=== PATIENT | female | born 1985 | race Caucasian/White ===

== ENCOUNTER 2016-08-16 14:18 | Emergency (ER) | payer MEDICAID ==
[2016-08-16 15:20] VITALS: BP 105/65; PULSE 103; RESP 14; TEMP 98.6; O2SAT 97
--- NOTE | 2016-08-16 16:06 | UCPHY ---
H & P Time Seen by Provider: 08/16/16 16:04 Patient Type: Established HPI/ROS: HPI: 30-year-old female presents to the urgent care with chief concern right ear pain. Reports onset of right ear pain yesterday. Pain is 5/10 and constant. Has had cold symptoms for the past week. Denies fever, dizziness, discharge from her ear, dysphagia, shortness of breath, chest pain, nausea or vomiting. Has a history of tubes in her ears when she was a child. ROS:10 point review of systems is negative other than as stated in HPI Smoking Status: Never smoked Physical Exam: Vital signs stable, reviewed by me General: Awake, alert, calm, cooperative. No acute distress. Head: Atraumatic. EENT: Conjuctiva mildly injected. TMs intact, erythema, bulging, obscured landmarks of the right tympanic membrane. Nasal mucosa is erythematous with moderate clear discharge. Pharynx mildly erythematous. Uvula midline. No frontal or maxillary tenderness to percussion. Respiratory: Breathing unlabored. Lungs clear to auscultation bilaterally. No accessory muscle use. CV: Heart rate regular. S1-S2 present. No murmur. Skin: Warm, dry, intact. No rashes present. Capillary refill brisk. Musculoskeletal: Full ROM all extremities. Neuro: Alert oriented x3. Strength equal in all 4 extremities. Constitutional: Initial Vital Signs Temperature (C) 37.0 C 08/16/16 15:15 Heart Rate 103 H 08/16/16 15:15 Respiratory Rate 14 08/16/16 15:15 Blood Pressure 105/65 08/16/16 15:15 O2 Sat (%) 97 08/16/16 15:15 O2 Delivery Mode Room Air Allergies/Adverse Reactions: oxycodone Allergy (Intermediate, Verified 08/16/16 15:14) Hives Home Medications: Medication Instructions Recorded MIRENA 04/28/16 Amoxicillin 500 mg PO BID 10 Days 08/16/16 Medical Decision Making Differential Diagnosis: Differential includes but is not limited to acute otitis media, serous otitis media, otitis externa Departure - Departure Clinical Impression: Acute otitis media Qualifiers: Otitis media type: suppurative Laterality: right Condition: Good Instructions: Otitis Media (ED) Additional Instructions: Plan: Antibiotic as prescribed twice daily for 10 days, take with food You may use 600 mg of ibuprofen every 6 hours for fever, inflammation, or pain. Always take ibuprofen with food and stay well hydrated while taking. Do not exceed the maximum allowable dose in a 24 hour period which is 2400 mg. If symptoms worsen, follow up with ENT as discussed--When you call to schedule appointment, please let the office know you are an "ER follow up" appointment" Referrals: NONE *PRIMARY CARE P,. [Primary Care Provider] - As per Instructions Shahid El PA [Physician Supervisory Historian] - As per Instructions Prescriptions: Amoxicillin 500 mg PO BID 10 Days - PQRS PQRS Measurement: Not applicable
== END 2016-08-16 16:28 | disposition home or self-care (01) ==
LOC: CED 14:18
DX: H66.001 Acute suppurative otitis media without spontaneous rupture of ear drum, right ear (principal)
CPT/HCPCS: 99214-PO; G0463-PO

== ENCOUNTER 2016-11-24 16:19 | Emergency (ER) | payer MEDICAID ==
[2016-11-24 16:33] VITALS: BP 122/76; PULSE 82; RESP 18; TEMP 98.2; O2SAT 96
--- NOTE | 2016-11-24 16:42 | UCPHY ---
H & P Time Seen by Provider: 11/24/16 16:41 Patient Type: Established HPI/ROS: CHIEF COMPLAINT: Abdominal pain HISTORY OF PRESENT ILLNESS: The patient is a 31-year-old female presenting with abdominal pain. She developed this pain 2 days ago. The pain is cyclical in nature, coming in waves where it is moderate, lasting a few minutes, then subsides to a mild pain. It ranges in duration. She state the pain is a cramping sensation that felt similar to menstrual cramps originally and then became more severe. The pain is diffusely throughout her abdomen, as she points to the lower abdomen. No associated nausea, vomiting, or diarrhea. She had a normal bowel movement this morning. Her last dose of Ibuprofen was at 11am, she took 1200mg at that time. The patient has a history of ectopic in 2011 and subsequently had left fallopian tube removed, after failing a course of methotrexate. LMP 315, though she has irregular periods in the 1st place REVIEW OF SYSTEMS: Constitutional: No fever, no chills. Eyes: No discharge. ENT: No sore throat. Cardiovascular: No chest pain, no palpitations. Respiratory: No cough, shortness of breath, or wheezing. Gastrointestinal: See above. Genitourinary: No hematuria or frequency. Smoking Status: Never smoked Physical Exam: General Appearance: Alert, no distress. Afebrile. Normal phonation. No respiratory distress. Eyes: Pupils equal and round no pallor or injection. No icterus ENT, Mouth: Mucous membranes moist. Pharynx without erythema or exudate. TM Clear. Neck: No adenopathy. Supple. No JVD. Trachea in midline. Respiratory: There are no retractions, lungs are clear to auscultation. Cardiovascular: Regular rate and rhythm. Abdomen: Mild tenderness both sides without rebound or guarding. Neurological: Ox3. No motor weakness. Sensation intact. Gait nl. Skin: Warm and dry, no rashes. Musculoskeletal: No joint swelling. Extremities: No edema. Homans sign negative. No cords. Psychiatric: Normal affect. [Patient is oriented X 3, there is no agitation] Constitutional: Initial Vital Signs Temperature (C) 36.8 C 11/24/16 16:20 Heart Rate 82 11/24/16 16:20 Respiratory Rate 18 11/24/16 16:20 Blood Pressure 122/76 H 11/24/16 16:20 O2 Sat (%) 96 11/24/16 16:20 O2 Delivery Mode Room Air Allergies/Adverse Reactions: oxycodone Allergy (Intermediate, Verified 11/24/16 16:33) Hives Home Medications: Medication Instructions Recorded Dicyclomine [Bentyl 10 MG (*)] 1 - 2 tab PO Q8 PRN #15 cap 11/24/16 11/24/16 Medical Decision Making ED Course/Re-evaluation: The patient is a 31-year-old female presenting with intermittent abdominal pain for the past 2 days. The patient has history of appendectomy and ectopic . She states her pain is a cramping sensation that has become more severe throughout the day. The patient is not on control. Plan to check test. Plan to treat her pain with Bentyl due to cyclic nature of pain. 6:35 p.m.: The patient has a negative test. I reevaluated the patient , she continues to have some cramping. Plan to treat with Bentyl. Differential Diagnosis: Differential diagnosis includes, but is not limited to: Gastroenteritis, dehydration, ectopic , gastritis, mesenteric adenitis , food poisoning, bacterial dysentery - Data Points Laboratory Results: 11/24/16 11/24/16 18:00 18:00 Urine Color YELLOW Urine Appearance HAZY Urine pH 6.5 (5.0-7.5) Ur Specific [place] 1.015 (1.002-1.030) Urine Protein NEGATIVE (NEGATIVE) Urine Ketones NEGATIVE (NEGATIVE) Urine Blood 3+ H (NEGATIVE) Urine Nitrate NEGATIVE (NEGATIVE) Urine Bilirubin NEGATIVE (NEGATIVE) Urine Urobilinogen 0.2 EU EU (0.2-1.0) Ur Leukocyte Esterase TRACE H (NEGATIVE) Urine RBC 15-25 /hpf H /hpf (0-3) Urine WBC 5-10 /hpf H /hpf (0-3) Ur Epithelial Cells 3+ /lpf H /lpf (NONE-1+) Urine Bacteria 2+ /hpf H /hpf (NONE SEEN) Urine Mucus 1+ /lpf /lpf (NONE-1+) Urine Yeast OCCASIONAL /hpf H /hpf (NONE SEEN) Ur Culture Indicated? INDICATED H (NI) Urine Glucose NEGATIVE (NEGATIVE) Urine Test NEGATIVE Medications Given: Discontinued Medications Dicyclomine HCl (Bentyl) 20 mg PO EDNOW ONE Stop: 11/24/16 18:52 Last Admin: 11/24/16 18:55 Dose: 20 mg Departure - Departure Disposition: Home, Routine, Self-Care Clinical Impression: Abdominal cramping Condition: Good Instructions: Acute Abdominal Pain (ED) Additional Instructions: 1. Take Bentyl as directed. no driving. 2. Drink plenty of fluids. Tomorrow, resume a normal, though bland diet, through the course of the day. 3. Followup with your primary care physician if you continue to have symptoms. Referrals: MIGUEL RIVERA [Other] - As per Instructions Stand Alone Forms: Work Excuse Prescriptions: Dicyclomine [Bentyl 10 MG (*)] 1 - 2 tab PO Q8 PRN #15 cap PRN Reason: moderate pain - PQRS PQRS Measurement: NA Report Scribed for: Manuel Villalobos Report Scribed by: Sade Major Date of Report: 11/24/16 Time of Report: 16:48
[2016-11-24 18:10] LABS: COLOR YELLOW; LEUKOCYTE ESTERASE,URINE TRACE (NEGATIVE); NITRITE,URINE NEGATIVE (NEGATIVE); PH,URINE 6.5 (5.0-7.5)
[2016-11-24 18:34] LABS: BACTERIA 2+ /hpf (NONE SEEN); MUCUS 1+ /lpf (NONE-1+); RBC,URINE 15-25 /hpf (0-3); YEAST OCCASIONAL /hpf (NONE SEEN)
[2016-11-24] MEDS ORDERED: DICYCLOMINE 20 MG TAB PO ONE (18:51)
[2016-11-24] MEDS ORDERED: DICYCLOMINE 10 MG CAP ONE (19:00)
== END 2016-11-24 19:01 | disposition home or self-care (01) ==
LOC: CED 16:19
DX: R10.9 Unspecified abdominal pain (principal)
CPT/HCPCS: 81003-PO; 81015-PO; 81025-PO; 99214-PO; G0463-PO